=== PATIENT | female | born 1970 | race Caucasian/White ===

== ENCOUNTER 2018-01-28 12:15 | Day surgery (SDC) | payer OTHER ==
[2018-01-28] MEDS: BUPIVACAINE 0.25% (MPF) 30 ML INJ
[~2018-01-28 12:15] MED LIST: CEFAZOLIN 1 GM INJ
[2018-01-28] MEDS ORDERED: IPRATROPIUM (NEB) 0.5 MG/2.5 ML AMP HHN (15:00)
[2018-01-28] MEDS ORDERED: DIPHENHYDRAMINE 50 MG INJ IV (15:00)
[2018-01-28] MEDS ORDERED: hydrALAzine 20 MG INJ IV (15:00)
[2018-01-28] MEDS ORDERED: LABETALOL HCL 20MG INJ IV (15:00)
[2018-01-28] MEDS ORDERED: HYDROmorphONE (0.2 MG/ML) 10ML SYG IV ×2 (15:00)
[2018-01-28] MEDS ORDERED: FENTAnyl 50 MCG/ML VIAL IV ×2 (15:00)
[2018-01-28] MEDS ORDERED: PROPOFOL 20 ML (15:02)
[2018-01-28] MEDS ORDERED: MIDAZOLAM 1 MG/ML 2 ML INJ (15:02)
[2018-01-28] MEDS ORDERED: FENTAnyl 50 MCG/ML VIAL (15:02)
[2018-01-28] MEDS ORDERED: LIDOCAINE 2% (SDV) 5 ML INJ (15:03)
[2018-01-28] MEDS ORDERED: ONDANSETRON 4 MG INJ (15:03)
[2018-01-28] MEDS ORDERED: HYDROCODONE/APAP (5/325) TAB PO (16:00)
[2018-01-28] MEDS: KETOROLAC 30 MG INJ IV (16:07)
[2018-01-28] MEDS: ONDANSETRON 4 MG INJ IV (16:07)
[2018-01-28] MEDS: MEPERIDINE 25 MG INJ IV (16:07)
== END 2018-01-28 17:08 | disposition home or self-care (01) ==
LOC: SDS 12:15
DX: D17.1 Benign lipomatous neoplasm of skin and subcutaneous tissue of trunk (principal); E66.9 Obesity, unspecified; Z68.27 Body mass index [BMI] 27.0-27.9, adult
CPT/HCPCS: 14001; 84703; 88307